=== PATIENT | female | born 1980 | race Caucasian/White ===

== ENCOUNTER 2020-05-23 05:49 | Day surgery (SDC) | payer OTHER ==
[2020-05-23] MEDS ORDERED: ceFAZolin SODIUM 1 GM VIAL ONE (06:37)
[2020-05-23] MEDS ORDERED: SODIUM CHL 0.9% 100ML MINI-BAG 100 ML IVPB ONE (06:37)
[2020-05-23] MEDS ORDERED: LACTATED RINGERS 1,000 ML ONE (06:37)
[2020-05-23] MEDS ORDERED: MAGNESIUM SULFATE INJ 1 GM/2 ML VIAL ONE (07:00)
[2020-05-23] MEDS ORDERED: SODIUM CHLORIDE 0.9% 50 ML VIAL ONE (07:00)
[2020-05-23] MEDS ORDERED: PROPOFOL 200 MG/20 ML VIAL IV ONE (07:00)
[2020-05-23] MEDS ORDERED: DEXAMETHASONE INJ 10 MG/ML VIAL ONE (07:00)
[2020-05-23] MEDS ORDERED: LIDOCAINE 1% 10 ML VIAL INJ ONE (07:00)
[2020-05-23] MEDS ORDERED: MIDAZOLAM INJ 2 MG/2 ML VIAL ONE (09:20)
[2020-05-23] MEDS ORDERED: KETAMINE HCL 100 MG/ML VIAL ONE (09:20)
[2020-05-23] MEDS ORDERED: HYDROmorphone HCL INJ 2 MG/ML VIAL ONE ×2 (09:21→12:19)
[2020-05-23] MEDS ORDERED: FAMOTIDINE 10 MG/ML ML IV ONE (10:44)
[2020-05-23] MEDS: BUPIVACAINE LIPOSOME 13.3 MG/ML VIAL INJ ONE ×2 (11:04→11:55)
[2020-05-23] MEDS: ceFAZolin SODIUM 1 GM VIAL ONE ×2 (11:04→11:57)
[2020-05-23] MEDS: BUPIVACAINE 0.5% 30 ML VIAL INJ ONE ×2 (11:04→11:55)
[2020-05-23] MEDS: VANCOMYCIN HCL INJ 1,000 MG VIAL IVPB ONE ×2 (11:05→11:57)
[2020-05-23] MEDS ORDERED: HYDROmorphone HCL INJ 2 MG/ML VIAL IV ONE ×4 (12:21→12:51)
--- NOTE | 2020-05-23 12:51 | RAD ---
EXAM DESCRIPTION: Ankle,Right 2 Views CLINICAL HISTORY: post op hay COMPARISON: May 19, 2020 IMPRESSION: 2 views of the left ankle show interval postsurgical changes with lateral plate and screw fixation of the distal fibula fracture. Single screw extends from the tibial into the posterior aspect of the distal tibia. Lateral projection is mildly obliqued limiting evaluation. Mild separation of the fibula fracture fragments remains. The ankle mortise is not well evaluated because of patient positioning. Electronically signed by: Gabriel Mendoza MD 05/23/2020 12:49 PM CDT
[2020-05-23] MEDS ORDERED: fentaNYL CITRATE INJ 50 MCG/ML AMP ONE (12:53)
[2020-05-23] MEDS ORDERED: fentaNYL CITRATE INJ 50 MCG/ML AMP IV ONE ×2 (13:00→13:15)
[2020-05-23] MEDS ORDERED: PROMETHAZINE HCL INJ 25 MG/ML VIAL ONE (13:23)
[2020-05-23] MEDS ORDERED: PROMETHAZINE HCL INJ 25 MG/ML VIAL IVPB ONE (13:25)
[2020-05-23] MEDS ORDERED: SODIUM CHLORIDE 0.9% (FLUSH) 10 ML SYG ONE ×2 (13:57→14:05)
[2020-05-23] MEDS ORDERED: BUPIVACAINE 0.5% 30 ML VIAL INJ ONE (13:57)
[2020-05-23] MEDS ORDERED: diphenhydrAMINE HCL 50 MG/ML VIAL ONE (14:00)
[2020-05-23] MEDS ORDERED: diphenhydrAMINE HCL 50 MG/ML VIAL IV ONE (14:00)
[2020-05-23 15:08] VITALS: BP 143/95; TEMP 98.4; O2SAT 95
--- NOTE | 2020-05-24 11:11 | RAD ---
EXAM: FL LESS THAN 1 HOUR DATE: 05/23/2020 Ordering provider: Remi Gong CLINICAL INDICATION: ORIF LEFT ANKLE COMPARISON: 05/19/2020 FINDINGS: 3 intraoperative fluoroscopic images were submitted for review. Images demonstrate a fixation plate and screws in the distal fibula. Please refer to operative report for details. Fluoroscopy time: 42 seconds IMPRESSION: Intraoperative fluoroscopy. Electronically signed by: Rahul Joiner MD 05/24/2020 11:09 AM CDT
--- NOTE | 2020-05-25 10:37 | OP ---
DATE OF PROCEDURE: 05/23/20 PREOPERATIVE DIAGNOSIS: 1. Left ankle fracture. POSTOPERATIVE DIAGNOSIS: 1. Left ankle fracture. PROCEDURE: 1. Left ankle ORIF. SURGEON: Remi Gong MD MOLD TOOLER: Koko Coates CST, SA-C ANESTHESIA: General anesthesia. COMPLICATIONS: None. FINDINGS: Fracture of the lateral malleolus with disruption of the syndesmosis. INDICATION: Ms. Resendez has a history of a fall and the acute onset of pain. Subsequent x-rays revealed a fracture of the lateral malleolus. Because of the displacement, she and I discussed the risks, benefits and alternatives to operative therapy. Informed consent was obtained for ORIF. PROCEDURE: The patient was brought to the Operating Room and placed in the supine position. General anesthesia was induced. The patient's leg was sterilely prepped and draped. Following prepping and draping, an incision was made along the border of the fibula and the fracture was identified. The fracture was reduced and a lag screw was placed from anterior to posterior. A plate was placed across the fracture site and the screw lengths were checked under fluoroscopic imaging. The mortise was stressed and it widened with stress, so a single syndesmosis screw was placed from lateral to medial. The wound was very thoroughly irrigated and after irrigation, it was closed with a combination of running and interrupted subcutaneous stitches. Sterile dressing was placed. The patient was awoken from anesthesia and taken to Recovery. POSTOPERATIVE PLAN: She is in a splint and she will be non-weightbearing for at least 6 weeks. She will followup with us in 2 days. #[id number] MTDD
== END 2020-05-23 15:10 | disposition home or self-care (01) ==
LOC: AMB 05:49
PROVIDERS: ATTEND Orthopaedic Surgery
DX: S82.62XA Displaced fracture of lateral malleolus of left fibula, initial encounter for closed fracture (principal)
CPT/HCPCS: 01480; 27792; 36415; 73600; 76000; 80048; 80307; 81001; 81025; 85025; 87070; 93005; A4216; C1713; C1769; J0690; J1170; J1200; J2250; J2550; J3010; J3370; J3490; J7050; J7120

== ENCOUNTER → 2020-07-04 | Outpatient (CLI) | payer OTHER ==
--- NOTE | 2020-07-04 14:21 | RAD ---
EXAM DESCRIPTION: Ankle,Left 3 Views CLINICAL HISTORY: closed fracture of lateral malleolus COMPARISON: May 23, 2020 IMPRESSION: 3 views of the left ankle show lateral plate and screw fixation of a distal fibular fracture with single cortical screw extending into the distal tibia. No hardware failure or loosening. Fracture appears mostly healed. The ankle mortise is maintained. Mild diffuse soft tissue swelling of the ankle is seen. Electronically signed by: Gabriel Mendoza MD 07/04/2020 2:19 PM [facility]
== END ==
LOC: RAD 08:57
PROVIDERS: ATTEND Orthopaedic Surgery
DX: S82.62XD Displaced fracture of lateral malleolus of left fibula, subsequent encounter for closed fracture with routine healing (principal); Z98.890 Other specified postprocedural states; M79.9 Soft tissue disorder, unspecified

== ENCOUNTER → 2020-07-19 | Outpatient (CLI) | payer OTHER ==
--- NOTE | 2020-07-19 12:09 | RAD ---
EXAM DESCRIPTION: Ankle,Left 3 Views CLINICAL HISTORY: FX OF ANKLE COMPARISON: 04 July 2020 TECHNIQUE: 3 views left FINDINGS: Exam reveals evidence of prior plate fixation of a fracture of the distal tibia and screw fixation of the ankle mortise with a screw traversing the plate tibia and fibula. Alignment is unchanged from the prior exam. A small joint effusion is evident. IMPRESSION: ORIF distal fibular fracture and repair of the ankle mortise. No interval changes observed from the prior exam. Electronically signed by: Baldo Decker MD 07/19/2020 12:07 PM [facility]
== END ==
LOC: RAD 09:14
PROVIDERS: ATTEND Orthopaedic Surgery
DX: S82.842D Displaced bimalleolar fracture of left lower leg, subsequent encounter for closed fracture with routine healing (principal); M25.472 Effusion, left ankle

== ENCOUNTER → 2020-08-15 | Outpatient (CLI) | payer OTHER ==
--- NOTE | 2020-08-15 10:26 | RAD ---
EXAM DESCRIPTION: Ankle,Left 3 Views CLINICAL HISTORY: 39 years, Female, [place]IMAL[place]OL[place] FX OF ANKLE COMPARISON: Previous left ankle x-ray series July 19, 2020 TECHNIQUE: AP/lateral/oblique of the left ankle FINDINGS: Orthopedic hardware in the distal fibula stabilizing a distal left fibular fracture. A screw traverses the metaphysis of the distal tibia. Screw is broken which is a new development compared to previous. Intact medial malleolus. There is mild soft tissue swelling laterally. Intact proximal metatarsals. Intact dome of the talus. Lateral view shows no evidence of fracture of the body of the talus or calcaneus. No calcaneal spurring is seen. Periosteal new bone formation is seen dorsal to the distal tibia. This was present on the previous study. No ankle joint narrowing, spurring or effusion. IMPRESSION: Broken screw through the distal tibia. Plate and screw fixation of distal left fibular fracture. Electronically signed by: Aj Lombardi MD 08/15/2020 10:24 AM [facility]
== END ==
LOC: RAD 09:27
PROVIDERS: ATTEND Orthopaedic Surgery
DX: S82.842D Displaced bimalleolar fracture of left lower leg, subsequent encounter for closed fracture with routine healing (principal); T84.117A Breakdown (mechanical) of internal fixation device of bone of left lower leg, initial encounter